=== PATIENT | female | born 1970 | race Caucasian/White ===

== ENCOUNTER 2017-06-24 06:55 | Day surgery (SDC) | payer BC, MEDICAID ==
--- NOTE | 2017-06-24 06:12 | History and Physical Report ---
DATE: 06/23/2017. CHIEF COMPLAINT AND HISTORY OF CHIEF COMPLAINT: This patient presents with a history of an intractable post cervical laminectomy radiculopathy. Her diagnostics do confirm multilevel fusion in the cervical spine. Her primary pain pattern is in the neck, head, and shoulders. Due to the failure of therapy including a spinal cord stimulator trial, she presents today for an implanted spinal catheter infusion trial with hydromorphone to determine if the implantation of a permanent system will be of any value in pain control. PAST MEDICAL HISTORY: Chronic intractable headaches, reflux esophagitis, degenerative arthritis, fibromyalgia, depression, difficulty sleeping. SOCIAL HISTORY: Noncontributory. FAMILY HISTORY: Thyroid disease, diabetes, hypertension. PAST SURGICAL HISTORY: Cervical spinal fusion times two, bariatric surgery, breast surgery, hand surgery, section, gallbladder surgery. EMPLOYMENT STATUS: Off work. MEDICATIONS ON ADMISSION: To be provided. ALLERGIES: Shellfish. PHYSICAL EXAMINATION: General: Height and weight are not known. Vital Signs: Not available. HEENT: Within normal limits. Lungs: Clear. Heart: Rapid, regular. Abdomen: Nontender. Musculoskeletal: Examination of the musculoskeletal system shows diffuse tenderness throughout the cervical spine with an extension moving along the trapezius, suprascapular, and deltoid muscle groups. There is an upper extremity component moving into the hands and fingers. The upper component moves in an occipital pattern distribution and an auricular distribution. Sensory field evaluation is intact. There are no obvious deficits. There are no significant appreciable motor deficits within the upper extremities. Neurologic: Cranial nerves are intact. IMPRESSION: 1. POST CERVICAL LAMINECTOMY SYNDROME, ICD-10 CODE M96.1. 2. CERVICAL RADICULITIS, ICD-10 CODE M54.13. PLAN: The patient is here for an implanted spinal catheter infusion trial with hydromorphone or Dilaudid to determine if the implantation of a permanent system will be of any value in pain control. The implanted catheter trial has been explained in detail. An incision will be made and the catheter will be anchored to the deep supraspinous fascia. An epidural blood patch will be performed along with this as a measure to help prevent spinal headaches. The potential risks, side effects, and complications including spinal cord injury, paralysis, nerve root injury, and spinal headaches have been carefully reviewed and discussed. Information has been provided through the medical clinic manager including a booklet also explaining the procedure, risks, side effects, and complications. A [email or web address] cash applications representative spoke directly with the patient who also reviewed and discussed these issues including the potential complications and the procedure in detail. All questions have been answered. The blood patch will require that the patient lie flat for four hours and then be slowly elevated. At that point she will be evaluated for discharge; although an overnight stay will be encouraged. JOB NUMBER: [id number] cc: Shana Ha
[~2017-06-24 06:55] MED LIST: ACETAMINOPHEN 1,000 MG/100 ML BTL IV ONE; CEFAZOLIN 2 Gram 2 GM/50 ML BAG IVPB ONE; FAMOTIDINE 20MG TABLET PO ONE; HYDROMORPHONE PF 2MG/ML AMP 0.008 MG in 0.9 % SODIUM CHLORIDE 10ML VIA 0.996 ML IV ONE; HYDROMORPHONE PF 2MG/ML AMP 4 MG in 0.9 % SODIUM CHLORIDE 500ML 498 ML IV ONE; MECLIZINE 25 MG TABLET PO ONE; METOCLOPRAMIDE 10 MG TABLET PO ONE
[2017-06-24] MEDS ORDERED: MIDAZOLAM HCL 2MG/2ML VIAL IV ONE (06:56)
[2017-06-24] MEDS ORDERED: LIDOCAINE 2% MDV (20MG/ML) 20ML VIAL IV ONE (06:56)
[2017-06-24] MEDS ORDERED: CEFAZOLIN 1G VIAL IM ONE (06:56)
[2017-06-24] MEDS ORDERED: PROPOFOL 10 MG/ML VIAL IV ONE (06:56)
[2017-06-24] MEDS ORDERED: LIDOCAINE 1% W/EPI 1:200,000 MPF 30ML SQ ONE (06:56)
[2017-06-24] MEDS ORDERED: DIPHENHYDRAMINE HCL IV 50 MG/ML VIAL IVP ONE (06:56)
[2017-06-24] MEDS ORDERED: 0.9 % SODIUM CHLORIDE 10 ML VIAL IVP ONE (06:56)
[2017-06-24] MEDS ORDERED: HYDROMORPHONE HCL 2 MG/ML VIAL IV ONE (06:56)
[2017-06-24] MEDS ORDERED: FENTANYL PF 100MCG/2ML VIAL IV ONE (06:56)
[2017-06-24] MEDS ORDERED: BUPIVACAINE 0.5% W/EPI MPF 30 ML VIAL IVP ONE (06:56)
[2017-06-24] MEDS ORDERED: AL HYDROX/MAG HYDROX 30ML UD PO PRN (10:24)
[2017-06-24] MEDS ORDERED: DIPHENHYDRAMINE HCL IV 50 MG/ML VIAL IVP PRN (10:24)
[2017-06-24] MEDS ORDERED: OXYCODONE/APAP 10MG-325MG TABLET PO PRN ×2 (10:24)
[2017-06-24] MEDS ORDERED: HYDROMORPHONE HCL 2 MG/ML VIAL IM PRN ×2 (10:24)
[2017-06-24] MEDS ORDERED: DIPHENHYDRAMINE HCL 25 MG CAPSULE PO PRN ×2 (10:24)
[2017-06-24] MEDS ORDERED: SENNOSIDES/DOCUSATE SODIUM UD CAPSULE PO PRN ×2 (10:24)
[2017-06-24] MEDS ORDERED: METOCLOPRAMIDE HCL 10 MG/2 ML VIAL IVP PRN (10:24)
[2017-06-24] MEDS ORDERED: METOCLOPRAMIDE 10 MG TABLET PO PRN (10:24)
[2017-06-24] MEDS ORDERED: ACETAMINOPHEN 325 MG TAB PO PRN ×2 (10:24)
[2017-06-24] MEDS ORDERED: NALOXONE 0.4 MG/1 ML VIAL IVP PRN (10:24)
[2017-06-24] MEDS ORDERED: HYDROCODONE/APAP 7.5/325MG TABLET PO PRN (10:24)
[2017-06-24] MEDS ORDERED: TEMAZEPAM 15 MG CAPSULE PO PRN ×2 (10:24)
[2017-06-24] MEDS: RINGERS SOLUTION,LACTATED 1,000 ML IV SCH ×3 (10:54→17:27)
[2017-06-24] MEDS: HYDROCODONE/APAP 7.5/325MG TABLET PO PRN ×3 (10:55→21:53)
[2017-06-24] MEDS: DIPHENHYDRAMINE HCL IV 50 MG/ML VIAL IVP PRN ×2 (13:17→22:58)
--- NOTE | 2017-06-24 15:09 | Operative Note - Ferro ---
DATE OF SURGERY: 06/24/17 PREOPERATIVE DIAGNOSES: 1. CERVICAL LAMINECTOMY SYNDROME, ICD-10 CODE = M96.1. 2. CERVICAL RADICULOPATHY, ICD-10 CODE = M54.13. OPERATION: 1. FLUOROSCOPICALLY-GUIDED ACCESS SPINAL SPACE AT L3/4, PLACEMENT OF THIN- WALLED SPINAL CATHETER T1-C7/T1. 2. INCISION, SUBCUTANEOUS DISSECTION, AND ANCHORING TO SUPRASPINOUS FASCIA WITH ANCHORING DEVICE AND NONABSORBABLE SUTURE. 3. SALINE INJECTION CLEARING CATHETER CONFIRMING CSF FLOW. BOLUS HYDROMORPHONE 0.002 MG SPINAL SPACE. 4. INCISION, SUBCUTANEOUS DISSECTION, AND CREATION OF A SUBCUTANEOUS POUCH AT RIGHT POSTERIOR GLUTEAL MARGIN. 5. TUNNELING OF SPINAL CATHETER INTO POSTERIOR POUCH. INTERFACE CATHETER WITH SECOND CATHETER COMPONENT TUNNELED SUPERIORLY 6 CM EXITING SKIN. 6. INTERFACE EXTERNAL CATHETER WITH EXTERNAL PUMP SET TO DELIVER HYDROMORPHONE AT 0.08 MG PER DAY HYDROMORPHONE. 7. CLOSURE OF MIDLINE INCISION, VICRYL FOR FASCIA, AND RUNNING SUBCUTICULAR VICRYL FOR SKIN. CLOSURE OF POSTERIOR POUCH WITH NYLON RUNNING SUTURE. 8. EPIDURAL BLOOD PATCH AT L4/5, 20 ML AUTOLOGOUS BLOOD STERILE TECHNIQUE, LEFT ANTECUBITAL. 9. DRESSINGS PLACED SECURING CATHETER AND ALL CONNECTIONS UNDER STERILE DRESSING. PATIENT TRANSPORTED TO THE RECOVERY ROOM FLAT, PILLOW UNDER HEAD AND KNEES. SURGEON: JULIO CESAR WOOD D.O. ANESTHESIA: LOCAL SEDATION. ANESTHESIA PROVIDER: RC MENDEZ CRNA. INDICATION: This patient presents with a history of intractable cervical radiculitis secondary to plate and screw at C5/6 and 6/7. Primary pain pattern neck, shoulder, and head. Due to the failure of all therapies, she is here for an implanted spinal catheter infusion trial with Hydromorphone to determine if the implantation of a permanent system can be of any value in pain control. PROCEDURE: Intravenous line, vital sign monitoring, IV sedation, prepped and draped in sterile technique. Patient position prone. A spinal interspace at L3/ 4 identified and marked to the lumbar. Skin infiltrated using a 20-gauge spinal needle paramedian approach beveled with a long axis. Using AP and lateral imaging, the needle was advanced into the spinal space. CSF flow noted. A thin- walled spinal catheter was advanced under imaging positioned at C7/T1. Catheter clamped. CSF noted. Skin above and below the needle infiltrated, incision made, and subcutaneous dissection was conducted to the supraspinous fascia. The needle was removed and the catheter was anchored to the supraspinous fascia with an anchoring device and nonabsorbable suture. CSF was still noted coming through the catheter. Saline was injected confirming patency and then a bolus of Hydromorphone spinal space 0.002 mg was given. Catheter was clamped to stop CSF leak. At the right posterior gluteal margin, site ultimately for the pump itself picked by the patient, skin infiltrated, incision made, and subcutaneous dissection was conducted to form a small pouch. The spinal catheter was tunneled into the posterior pouch and then the catheter was interfaced with a second catheter component by way of a connector. The second catheter component was tunneled 6 cm superior to the pouch exiting the skin. The external catheter was interfaced with an external pump, which was set to deliver Hydromorphone at 0.08 mg a day. The midline incision was closed with Vicryl for fascia and a running subcuticular Vicryl for skin. The posterior pouch was closed with a running nylon. 20 mL of autologous blood drawn sterile technique from the left antecubital and then an epidural blood patch at L4/5 was performed with this blood at this level. Needle removed and then the site was cleaned and dressing placed to secure the catheter and all connections under sterile dressing. She was then transported to the Recovery Room stable, flat, pillow under head and knees. She will stay flat for four hours, slowly elevated for one but be kept overnight for observation and in the morning discharged. DISCHARGE INSTRUCTIONS: 1. Sites remain clean and dry. No showering or bathing in any way that disrupts dressing. If it happens, contact the clinic. 2. Standard medications resumed including Levaquin, the antibiotic, 500 mg once a day for 14 days. 3. Spinal opioid side-effects including; respiratory depression, nausea, vomiting, constipation, urinary retention, lightheadedness, or rash have all been discussed and reviewed. All other instructions provided, numbers to contact , problems given. She will be evaluated for possible increase in the infusion in the 3-5 days. cc: Dr. Trinh Mota JOB NUMBER: [id number] MTDD
[2017-06-24] MEDS: CEFAZOLIN 2 Gram 2 GM/50 ML BAG IVPB SCH ×2 (15:49→22:53)
[2017-06-24] MEDS: HYDROXYZINE PAMOATE 25 MG CAPSULE PO PRN (15:54)
[2017-06-25] MEDS: RINGERS SOLUTION,LACTATED 1,000 ML IV SCH (04:15)
[2017-06-25] MEDS: CEFAZOLIN 2 Gram 2 GM/50 ML BAG IVPB SCH (09:08)
[2017-06-25] MEDS: HYDROCODONE/APAP 7.5/325MG TABLET PO PRN (09:08)
[2017-06-25] MEDS: HYDROXYZINE PAMOATE 25 MG CAPSULE PO PRN (09:09)
--- NOTE | 2017-06-25 15:09 | RADIOLOGY REPORT ---
EXAM: AP THORACIC SPINE HISTORY: POST PAIN PUMP TRIAL. TECHNIQUE: A single AP view of the thoracic spine was obtained. Comparison: None. FINDINGS: There are a couple prominent metallic densities overlying the mid lower cervical spine. These could be related to prior spinal surgery or be external to the patient and clinical correlation is suggested. There is a faint catheter like structure extending transversely across the right mid abdomen towards the spine at the L2 level. It is very difficult to confidently identify any form of catheter or wire extending up the visualized spinal canal itself and correlation with the procedure is suggested. There may be some somewhat poorly seen surgical clips in the right upper quadrant of the abdomen and possibly a few to the left of the thoracic spine at the T9 level. Mild relative elevation of the right hemidiaphragm. IMPRESSION: FAINT CATHETER LIKE STRUCTURE EXTENDING TRANSVERSELY ACROSS THE RIGHT MID ABDOMEN, BUT VERY DIFFICULT TO IDENTIFY ANY FORM OF CATHETER OR WIRE OVERLYING THE VISUALIZED SPINAL CANAL ITSELF. CORRELATION WITH THE PROCEDURE HISTORY IS SUGGESTED. A COUPLE METALLIC DENSITIES OVERLYING THE LOWER CERVICAL SPINE NOTED ABOVE. JOB NUMBER: [id number] [facility]
== END 2017-06-25 09:55 | disposition home or self-care (01) ==
LOC: MEDSURG 06:55 → SUR 06:55 → MEDSURG 09:52 → SUR 06-25 09:55
PROVIDERS: ATTEND Pain Medicine Interventional Pain Medicine
DX: M96.1 Postlaminectomy syndrome, not elsewhere classified (principal); M54.13 Radiculopathy, cervicothoracic region
CPT/HCPCS: 62350; 00630; 72020; 94010; 94760; J3010; J1170 ×2; J0690 ×2; J1200; J2765; J7040; J7120

== ENCOUNTER 2017-06-29 12:23 | Observation (INO) | payer BC, MEDICAID ==
[2017-06-29] MEDS ORDERED: ONDANSETRON HCL IV 4 MG/2 ML VIAL IV ONE (12:48)
[2017-06-29] MEDS ORDERED: 0.9 % SODIUM CHLORIDE 1,000 ML BAG IV ONE (12:48)
[2017-06-29] MEDS ORDERED: KETOROLAC 30 MG/ML VIAL IVP ONE (12:49)
[2017-06-29] MEDS ORDERED: HYDROMORPHONE HCL 2 MG/ML VIAL IVP ONE ×2 (12:56→14:58)
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
[2017-06-29 13:32] LABS: BASO % 0.5 % (0-6); GRAN % 68.5 % (47-80); HEMATOCRIT 35.6 % (35.0-47.0); HEMOGLOBIN 11.4 gm/dl (11.6-16.0); LYMPH % 22.1 % (16-45); MEAN CELL VOLUME 81.8 fl (81-97); MEAN CORPUSCULAR HEMOGLOBIN 26.2 pg (27-33); MEAN PLATELET VOLUME 10.2 fl (7.4-10.4); MONO % 7.9 % (0-9); PLATELET COUNT 486 K/uL (130-400); RED BLOOD COUNT 4.35 M/uL (3.80-5.40); RED CELL DISTRIBUTION WIDTH 15.6 % (11.5-14.5); WHITE BLOOD COUNT W/O DIFF 10.2 K/uL (4.2-12.2)
[2017-06-29 13:46] LABS: BLOOD UREA NITROGEN 11 mg/dL (6-20); CREATININE 0.5 mg/dL (0.5-0.9); EST GLOMERULAR FILTRATION RATE > 60 mL/min
[2017-06-29 13:47] LABS: TOTAL PROTEIN 7.8 g/dL (6.6-8.7)
[2017-06-29 13:49] LABS: GLUCOSE,RANDOM 98 mg/dL (74-109)
[2017-06-29 13:51] LABS: ALB/GLOB RATIO 1.2 (1.1-1.8); ALBUMIN 4.3 g/dL (4.0-5.0); ALKALINE PHOSPHATASE 92 U/L (35-104); ALT/SGPT 38 U/L (<33); AST/SGOT 21 U/L (10.0-35.0); C-REACTIVE PROTEIN 0.35 mg/dL (<0.5)
[2017-06-29] MEDS ORDERED: SUCRALFATE 1 G/10 ML UD PO ONE (14:26)
[2017-06-29] MEDS ORDERED: KETOROLAC 30 MG/ML VIAL IVP PRN (17:19)
[2017-06-29] MEDS ORDERED: AL HYDROX/MAG HYDROX 30ML UD PO PRN (17:19)
[2017-06-29] MEDS ORDERED: ACETAMINOPHEN 500 MG TABLET PO PRN (17:19)
[2017-06-29] MEDS ORDERED: ACETAMINOPHEN 325 MG TAB PO PRN (17:30)
[2017-06-29] MEDS: ONDANSETRON HCL IV 4 MG/2 ML VIAL IVP PRN (17:41)
[2017-06-29] MEDS: HYDROMORPHONE HCL 2 MG/ML VIAL IVP PRN (20:17)
[2017-06-29] MEDS: METOCLOPRAMIDE HCL 10 MG/2 ML VIAL IVP PRN (20:17)
[2017-06-29] MEDS ORDERED: DEXAMETHASONE SOD PHOSPHATE 10MG/ML VIAL IVP ONE (20:38)
[2017-06-30] MEDS: HYDROMORPHONE HCL 2 MG/ML VIAL IVP PRN ×3 (01:19→09:15)
[2017-06-30] MEDS: 0.9 % SODIUM CHLORIDE 1000ML 1,000 ML IV PRN ×2 (02:28→13:22)
[2017-06-30] MEDS: METOCLOPRAMIDE HCL 10 MG/2 ML VIAL IVP PRN ×2 (04:34→16:39)
[2017-06-30 04:36] LABS: URINE APPEARANCE CLEAR; URINE BILIRUBIN NEGATIVE (NEGATIVE); URINE BLOOD SMALL (NEGATIVE); URINE COLOR YELLOW; URINE GLUCOSE (UA) NEGATIVE (NEGATIVE); URINE KETONE TRACE (NEGATIVE); URINE LEUKOCYTE ESTERASE NEGATIVE (NEGATIVE); URINE NITRITE NEGATIVE (NEGATIVE); URINE PROTEIN NEGATIVE (NEGATIVE)
[2017-06-30 04:37] LABS: URINE RBC 0 - 2 (NONE SEEN); URINE WBC 0 - 2 (0-2/hpf)
[2017-06-30 04:38] LABS: URINE BACTERIA NONE SEEN; URINE EPITHELIAL CELLS 0 - 2 (FEW)
[2017-06-30] MEDS: PANTOPRAZOLE SODIUM IV 40 MG VIAL IVP SCH (07:01)
[2017-06-30] MEDS: ONDANSETRON HCL IV 4 MG/2 ML VIAL IVP PRN (09:08)
[2017-06-30] MEDS ORDERED: ACETAMINOPHEN 1,000 MG/100 ML BTL IV ONE (10:00)
[2017-06-30] MEDS ORDERED: FAMOTIDINE 20MG TABLET PO ONE (10:00)
[2017-06-30] MEDS ORDERED: METOCLOPRAMIDE 10 MG TABLET PO ONE (10:00)
[2017-06-30] MEDS ORDERED: MECLIZINE 25 MG TABLET PO ONE (10:00)
[2017-06-30] MEDS ORDERED: HYDROMORPHONE HCL 2 MG/ML VIAL IV ONE (10:30)
[2017-06-30] MEDS ORDERED: MIDAZOLAM HCL 2MG/2ML VIAL IV ONE (10:30)
[2017-06-30] MEDS ORDERED: LIDOCAINE 1% W/EPI 1:200,000 MPF 30ML SQ ONE (10:30)
[2017-06-30] MEDS ORDERED: CEFAZOLIN 1G VIAL IM ONE (10:30)
[2017-06-30] MEDS ORDERED: PROPOFOL 10 MG/ML VIAL IV ONE (10:30)
[2017-06-30] MEDS ORDERED: LIDOCAINE 2% MDV (20MG/ML) 20ML VIAL IV ONE (10:30)
[2017-06-30] MEDS ORDERED: BUPIVACAINE 0.5% W/EPI MPF 30 ML VIAL IVP ONE (10:30)
[2017-06-30] MEDS ORDERED: FENTANYL PF 100MCG/2ML VIAL IV ONE (10:30)
[2017-06-30] MEDS ORDERED: CEFAZOLIN 2 Gram 2 GM/50 ML BAG IVPB ONE (10:45)
[2017-06-30] MEDS ORDERED: OXYCODONE/APAP 10MG-325MG TABLET PO PRN (12:22)
[2017-06-30] MEDS ORDERED: METOCLOPRAMIDE 10 MG TABLET PO PRN (12:22)
[2017-06-30] MEDS ORDERED: HYDROMORPHONE HCL 2 MG/ML VIAL IM PRN ×2 (12:22)
[2017-06-30] MEDS: CAFFEINE/SODIUM BENZOATE 250MG/ML 2ML VIAL IVP SCH ×3 (13:03→23:58)
[2017-06-30] MEDS: OXYCODONE/APAP 10MG-325MG TABLET PO PRN ×2 (17:31→21:54)
[2017-06-30] MEDS ORDERED: CEPHALEXIN 500 MG CAPSULE PO SCH (18:00)
[2017-06-30] MEDS ORDERED: 0.9 % SODIUM CHLORIDE 1000ML 1,000 ML IV PRN (19:57)
[2017-06-30] MEDS: CEPHALEXIN 500 MG CAPSULE PO SCH (20:05)
--- NOTE | 2017-06-30 20:25 | Operative Note - Ferro ---
DATE OF SURGERY: 06/30/17 PREOPERATIVE DIAGNOSES: 1. POST CERVICAL LAMINECTOMY SYNDROME, ICD-10 CODE = M96.1. 2. CERVICAL RADICULITIS, ICD-10 CODE = M54.13. 3. IMPLANTED SPINAL CATHETER INFUSION TRIAL HYDROMORPHONE WITH INTRACTABLE SPINAL HEADACHE. SURGERY: 1. FLUOROSCOPIC-GUIDED INCISION AND SUBCUTANEOUS DISSECTION WITH REMOVAL OF INDWELLING SPINAL CATHETER. 2. INCISION AND SUBCUTANEOUS DISSECTION AND REMOVAL OF EXTERNALIZED CATHETER. 3. EPIDURAL BLOOD PATCH. SURGEON: JULIO CESAR WOOD D.O. ANESTHESIA: LOCAL SEDATION. ANESTHESIA PROVIDER: RC MENDEZ CRNA. INDICATIONS: This patient presents with a six-day history of an implanted spinal catheter infusion trial with Hydromorphone. On approximately the third day post-op, this patient developed a spinal headache, which became intractable. Emergency Room visit was nonproductive. She was then sent by myself to the Emergency Room here at [facility], where volume cheondoism and symptomatic control was conducted with minimal success. She was admitted for today's removal of the system and an epidural blood patch. SURGERY: Intravenous line, vital sign monitoring, IV sedation by Anesthesia, patient positioned on operating table prone. Sterile prep. Sterile technique. The midline incision for the implanted catheter infiltrated with local, incision made, and subcutaneous dissection was conducted to the anchor and the implanted catheter suturing. The suture was removed intact. The anchor was retracted. A pursestring suture placed around the catheter penetration into the spinal space. The catheter was slowly removed. The pursestring suture was tightened stopping any CSF loss. At the tip of the catheter, a radiopaque bead was identified. The catheter was removed intact. Under imaging, the T1 level was identified, no catheter tip noted. Antibiotic irrigation and Bovie for hemostasis. The midline incision was then closed with a multiple-layer closure using Vicryl and then a running nylon for skin. At the right posterior gluteal margin, incision, skin infiltrated. The incision was opened and the interface between the indwelling spinal catheter and external catheter was identified. The connector was then cut and then the external catheter was removed intact by pulling away from the wound. The connector and remaining portion of the internal catheter were removed intact. Antibiotic irrigation and Bovie for hemostasis. The incision was then closed with Vicryl for facia and a running nylon suture for skin. Dressing was placed. At L4-5, which was one level below the catheter placement at 3-4, skin infiltrated then an #18 gauge Tuohy needle with [id number] into the epidural space. Simultaneously, 20 mL of autologous blood drawn sterile technique. An epidural blood patch was performed at this level with this blood. The dressings were reinforced. She was transported to the Recovery Room flat, pillow under head and knees. She will stay flat for four hours, slowly elevated for one, and then we will evaluate the possibility of discharge either in the night or in the early a.m. As a side note, when the midline incision was opened for the catheter removal, there was no CSF noted in the space. At the right posterior gluteal margin site, there was no fluid noted in the space. When the epidural access was performed, no CSF noted in the epidural space. She was transported stable. No side-effects from the procedure. As per above, we will monitor her for discharge. cc: Dr. Trinh Mota JOB NUMBER: [id number] MTDD
[2017-07-01] MEDS: ONDANSETRON HCL IV 4 MG/2 ML VIAL IVP PRN (00:08)
[2017-07-01] MEDS: CEPHALEXIN 500 MG CAPSULE PO SCH ×2 (02:02→08:03)
[2017-07-01] MEDS: OXYCODONE/APAP 10MG-325MG TABLET PO PRN ×3 (02:02→10:11)
[2017-07-01] MEDS ORDERED: 0.9 % SODIUM CHLORIDE 1000ML 1,000 ML IV PRN (06:01)
--- NOTE | 2017-07-01 06:01 | History and Physical Report ---
DATE: 06/30/2017. DATE OF ADMISSION: 06/29/2017. CHIEF COMPLAINT AND HISTORY OF CHIEF COMPLAINT: This patient had an implanted catheter trial on 06/24/2017. She was seen in the emergency room with a spinal headache which had been intractable over a period of perhaps three to four days. Despite conservative efforts, nothing appreciable was controlling the headache. She was admitted for removal of the system. PAST MEDICAL HISTORY: Reviewed and unchanged. PAST SURGICAL HISTORY: Reviewed and unchanged. SOCIAL HISTORY: Reviewed and unchanged. FAMILY HISTORY: Reviewed and unchanged. MEDICATIONS ON ADMISSION: Reviewed and unchanged. ALLERGIES: Reviewed and unchanged. REVIEW OF SYSTEMS: Reviewed and unchanged. PHYSICAL EXAMINATION: General: Height and weight not identified. HEENT: Within normal limits. Lungs: Clear. Heart: Rapid and regular. Abdomen: Nontender. Musculoskeletal: Dressings for the implanted spinal catheter trial are intact. The patient is currently seen flat with a headache which seems to run across the shoulders to the back side of the neck and around the side of the head to the top of the head. The headache exacerbates with upright positioning and subsides when flat. Lower extremity functionality intact. There are no motor or sensory field abnormalities of the upper or lower extremities. The dressings for the implanted catheter trial are fully intact. The external pump which has been turned off is intact. Neurologic: Appears to be intact. Cranial nerves are intact. IMPRESSION: 1. POSTCERVICAL LAMINECTOMY SYNDROME, ICD-10 CODE M96.1. 2. CERVICAL RADICULITIS, ICD-10 CODE 54.13. 3. DURAL PUNCTURE SPINAL HEADACHE IMPLANTED CATHETER TRIAL. PLAN: The patient is being admitted for removal of the catheter with an epidural blood patch. She will be evaluated for discharge. All of the potential risks, side effects, and complications have been reviewed. JOB NUMBER: [id number] cc: Shana Ha
[2017-07-01] MEDS: CAFFEINE/SODIUM BENZOATE 250MG/ML 2ML VIAL IVP SCH (06:05)
[2017-07-01] MEDS: PANTOPRAZOLE SODIUM IV 40 MG VIAL IVP SCH (06:08)
--- NOTE | 2017-07-08 20:10 | Discharge Summary ---
DATE OF ADMISSION: 06/29/2017 DATE OF DISCHARGE: 06/30/2017 CHIEF COMPLAINT: This patient, with history of a post cervical laminectomy radiculitis, had an implanted spinal catheter infusion trial with Hydromorphone. Over 24-48 hours, she developed an intense spinal headache. She was readmitted and an epidural blood patch performed. The trial system was removed. She was discharged stable. MEDICAL HISTORY: Chronic intractable headaches. Post cervical laminectomy syndrome. SURGERIES: Cervical spine fusion. HOSPITAL COURSE: The patient was admitted for intravenous fluid oriental orthodox, which did not appreciably help her headache. An epidural blood patch was performed. The catheter, which was indwelling surgically placed, was removed and she was discharged stable. She was discharged without incident. INSTRUCTIONS: She will be seen in the office within 7-10 days. Her incisions were closed with a running nylon. We will evaluate her in the office and remove the suture and then consider evaluation for further options and therapy. JOB NUMBER: [id number] MTDD
== END 2017-07-01 10:30 | disposition home or self-care (01) ==
LOC: ER 12:23 → MEDSURG 16:11
PROVIDERS: ADMIT Pain Medicine Interventional Pain Medicine; ATTEND Pain Medicine Interventional Pain Medicine
DX: T85.840A Pain due to nervous system prosthetic devices, implants and grafts, initial encounter (principal); M96.1 Postlaminectomy syndrome, not elsewhere classified; M54.13 Radiculopathy, cervicothoracic region; M06.9 Rheumatoid arthritis, unspecified; M79.7 Fibromyalgia
CPT/HCPCS: 62355; 00300; 99285 ×2; 96376; 96374; 96375; 85025; 86140; 80053; 81001; G0378 ×3; J1885; J2405 ×3; J3010; J1170 ×2; J0690; J1100; J3490; C9113; J2765; J7030